=== PATIENT | female | born 1995 | race Caucasian/White ===

== ENCOUNTER 2021-11-16 23:33 | Emergency (ER) | payer BC ==
[~2021-11-16] VITALS: Ht 160 cm; Wt 145.2 kg
[2021-11-17] MEDS ORDERED: METFORMIN HCL500 MG PO (02:52)
[2021-11-17] MEDS ORDERED: DOXYCYCLINE 10100 M2 PO (02:52)
[2021-11-17] MEDS ORDERED: ESCITALOPRAM OX20 MG PO (02:52)
[2021-11-17] MEDS ORDERED: PROTONIX40 M2 PO (02:53)
[2021-11-17] MEDS ORDERED: VISTARIL 25 MG25 M1 PO (02:53)
[2021-11-17 02:58] VITALS: BP 110/60
--- NOTE | 2021-11-17 07:31 | EKG ---
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
== END 2021-11-17 02:58 | disposition home or self-care (01) ==
LOC: ER 23:33
DX: U07.1 COVID-19 (principal); Z79.84 Long term (current) use of oral hypoglycemic drugs; Z79.891 Long term (current) use of opiate analgesic; Z79.899 Other long term (current) drug therapy; Z91.018 Allergy to other foods

== ENCOUNTER 2021-11-19 21:19 | Emergency (ER) | payer BC ==
[~2021-11-19] VITALS: Ht 160 cm; Wt 145.2 kg
[~2021-11-19 21:19] MED LIST: DOXYCYCLINE 10100 M2 PO; ESCITALOPRAM OX20 MG PO; METFORMIN HCL500 MG PO; PROTONIX40 M2 PO; VISTARIL 25 MG25 M1 PO
[2021-11-19 21:57] LABS: HEMATOCRIT 37.2 % (37.0-47.0); MCHC 32.2 g/dL (28.0-37.0); MCV 77.6 fL (80.0-100.0); RBC 4.79 mil/uL (4.20-5.00); RDW 14.9 % (10.5-14.5); WBC 11.4 thou/uL (4.0-11.0)
[2021-11-19 22:04] LABS: CALCIUM 8.6 mg/dL (8.5-10.1); CREATININE 0.7 mg/dL (0.6-1.0)
[2021-11-19 22:17] LABS: ALBUMIN 3.2 g/dL (3.4-5.0); TOTAL BILIRUBIN 0.1 mg/dL (0.2-1.0); TOTAL PROTEIN 7.3 g/dL (6.4-8.2)
[2021-11-20 02:07] VITALS: BP 113/50
--- NOTE | 2021-11-21 11:08 | EKG ---
[place] [address] [facility] [place] [address] ELECTROCARDIOGRAM REPORT Name: CORIN MISTRY Room #: DEP [id number] Admission: 11/19/21 Attend Phys: Discharge: 11/20/21 Date of : [birth year] Report #: [id number] [facility] ED Test Date: 2021-11-19 Test Time: 21:44:45 Pat Name: CORIN MISTRY Department: Room: Gender: F Buffer Operator: : 1995 Requested By: Cassandra Quinones Order Number: [id number] MD: Rivera Cha Measurements Intervals [place] Rate: 90 P: 22 PA: 151 QRS: 11 QRSD: 89 T: 28 QT: 348 QTc: 426 Interpretive Statements Sinus rhythm No significant abnormality Compared to ECG 11/16/2021 23:50:28 No significant changes Electronically Signed On 11-21-2021 11:08:26 [employer] by Rivera Cha [email or web address] <ELECTRONICALLY SIGNED> By: Rivera Cha MD, [facility] 11/21/21 1108 [id number] Rivera Cha MD, FACC /EPI
== END 2021-11-20 02:15 | disposition home or self-care (01) ==
LOC: ER 21:19
PROVIDERS: Nurse Practitioner Family
DX: U07.1 COVID-19 (principal); F41.9 Anxiety disorder, unspecified; F32.9 Major depressive disorder, single episode, unspecified; J45.909 Unspecified asthma, uncomplicated; K21.9 Gastro-esophageal reflux disease without esophagitis; Z86.16 Personal history of COVID-19; Z79.84 Long term (current) use of oral hypoglycemic drugs; Z79.899 Other long term (current) drug therapy; Z91.018 Allergy to other foods